=== PATIENT | female | born 1955 | race Caucasian/White ===

== ENCOUNTER 2018-07-23 17:51 | Emergency (ER) | payer MEDICARE, BC ==
--- NOTE | 2018-07-23 19:40 | ED Physician Documentation ---
General Adult - HISTORIAN Historian: patient - HPI Stated Complaint: Right knee pain Chief Complaint: General Adult Onset: minutes Timing: still present Severity: moderate Further Comments: yes (Pt is a 63 yo female with R knee pain. Pt slipped on ladder getting into the pool at [employer] and stuck and twister her R knee. No other injury. Pt did not strike her head or injure her neck or back. Pt rates her pain as 8/10.) - ROS CONST: no problems EYES/ENT: none CVS/RESP: none GI/: none MS/SKIN/LYMPH: other (R knee injury) - PAST HX Past History: other (DM, migraine) Other History: other (Tonsills & Adenoids, C-sec, hernia, hysterectomy, ortho surg, Large bowel resection, cervical and lumbar fusion) Allergies/Adverse Reactions: Allergies Allergy/AdvReac Type Severity Reaction Status Date / Time acetaminophen [From Lortab] Allergy Verified 07/23/18 18:20 cephalexin [From Keflex] Allergy Verified 07/23/18 18:20 Cephalosporins Allergy Verified 07/23/18 18:20 hydrocodone [From Lortab] Allergy Verified 07/23/18 18:20 Penicillins Allergy Verified 07/23/18 18:20 Home Medications: Ambulatory Orders Medication Instructions Recorded Eletriptan HBr [Relpax] 20 mg PO DAILY PRN 07/23/18 Fexofenadine HCl [Amber] 180 mg PO DAILY 07/23/18 Fluticasone Propionate [Flonase] 2 sprays INH DAILY 07/23/18 Glimepiride [Amaryl] 4 mg PO DAILY 07/23/18 Insulin Detemir [Levemir Flex-Pen] 25 unit SQ HS 07/23/18 Lisinopril 20 mg PO DAILY 07/23/18 Metformin HCl 2,000 mg PO DAILY 07/23/18 Topiramate [Topamax] 25 mg PO QID PRN 07/23/18 Tramadol HCl [Ultram] 100 mg PO HS 07/23/18 Venlafaxine HCl [Effexor Xr] 150 mg PO HS 07/23/18 - SOCIAL HX Smoking History: cigarettes - FAMILY HX Family History: No - VITAL SIGNS Vital Signs: Vital Signs Temp Pulse Resp BP Pulse Ox 98.0 F 91 H 16 169/77 96 07/23/18 18:26 07/23/18 18:26 07/23/18 18:26 07/23/18 18:26 07/23/18 18:26 - REVIEWED ASSESSMENTS Nursing Assessment Reviewed: Yes Vitals Reviewed: Yes Progress - Progress Progress: X-ray R knee: There is no fracture, dislocation or abnormal bone production or destruction. Impression: Normal. Percocet (5/325) 2 tablets po in ER. (Pt is allergic to [place], but has taken Percocet without rxn.) D/c instructions: Rx Percocet (5/325). Take one or two every 4 to 6 hours as needed for moderate to severe pain. Disp: 15 plus 2 tablets --> home. JOLLY wrap or other knee support. Crutches as needed. Follow up with primary provider or with orthopedic doctor is symptoms persist or are unimproved in one week. ED Results Lab/Radiology - Orders Orders: ED Orders Category Date Time Status KNEE 3 VIEWS [RAD] Stat Exams 07/23/18 Taken General Adult Physical Exam - PHYSICAL EXAM GENERAL APPEARANCE: moderate distress NECK: normal inspection, supple RESPIRATORY: no resp distress, chest non-tender, breath sounds normal CVS: reg rate & rhythm, heart sounds normal ABDOMEN: soft, no organomegaly BACK: normal inspection, no CVA tenderness SKIN: warm/dry, normal color EXTREMITIES: no edema, other (R knee: no ligamentous instability; no effusion; no abrasion.) NEURO: oriented X3, motor nml, sensation nml Discharge Clincal Impression: Right knee sprain Qualifiers: Encounter type: initial encounter Involved ligament of knee: unspecified ligament Qualified Code(s): S83.91XA - Sprain of unspecified site of right knee, initial encounter Referrals: Primary Doctor,No [Primary Care Provider] - 2 Days Condition: Good Disposition: 01 HOME, SELF-CARE Decision to Admit: NO Decision Time: 20:18
[2018-07-23] MEDS ORDERED: oxyCODONE/ACETAMINOPHEN 5/325 TABLET PO ONE ×2 (19:44→20:10)
[2018-07-24 03:40] VITALS: BP 155/72
--- NOTE | 2018-07-24 07:02 | Diagnostic Imaging Report ---
JUAN COLE [facility] [address] [facility].[address] [id number] Report Submission Date: Jul 23, 2018 8:04:25 PM CDT Patient Study Name: HAMILTON ALCOCER Date: Jul 23, 2018 7:04:59 PM CDT Modality Type: DX Gender: F Description: LOWER EXTREMITY : 51 Institution: [facility] Physician: JUAN COLE Right knee, AP, lateral and sunrise views History: Knee pain Findings: There is no fracture, dislocation or abnormal bone production or destruction. Impression: Normal. Electronically signed on Jul 23, 2018 8:04:25 PM CDT by: Jake PAULA
== END 2018-07-23 20:30 | disposition home or self-care (01) ==
LOC: ED 17:51
DX: S83.91XA Sprain of unspecified site of right knee, initial encounter (principal); W19.XXXA Unspecified fall, initial encounter; Y92.34 Swimming pool (public) as the place of occurrence of the external cause; Y93.11 Activity, swimming; Y99.9 Unspecified external cause status
CPT/HCPCS: 73562; A9270; 99283